=== PATIENT | female | born 1990 | race Caucasian/White ===

== ENCOUNTER 2017-10-09 13:25 | Emergency (ER) | payer SELFPAY ==
[~2017-10-09] VITALS: Ht 157.5 cm; Wt 48.0 kg
[~2017-10-09 13:25] MED LIST: CIPR500T2 PO; DARV PO; DONNTAB12 PO; OMEP20CA5 PO; PRIL20TA2 PO; PROC25R PR; PYRI200T4 PO; SUCR1TAB6 PO; SULF1TAB47 PO
[2017-10-09 13:26] VITALS: BP 107/60; PULSE 58; RESP 16; TEMP 98.1; O2SAT 99
[2017-10-09] MEDS ORDERED: ASPI81CH6 CHEW (13:44)
[2017-10-09] MEDS ORDERED: BACT800T5 PO (13:44)
--- NOTE | 2017-10-09 14:05 | PD ---
HPI Chief Complaint: Wound/Suture/Staple Re-Check Time Seen by Provider: 13:50 Travel History International Travel<30 days: No Contact w/Intl Traveler<30days: No Traveled to known affect area: No History of Present Illness HPI 27-year-old female presents to the emergency room for packing removal. Patient has IV drug user and missed her right antecubital vein. She went to a hospital in [place] where they performed an incision and drainage and packed the wound. Patient was told to have the packing removed in 2 days. States she has had significant improvement in symptoms. She had a lot of swelling and could not move her arm prior to incision and drainage and now has almost no swelling, redness, and full range of motion of her arm. She denies fever, chills, nausea , vomiting. PFSH Past Medical History Hx Anticoagulant Therapy: Yes (ASPIRIN ) Blood Disorders: No Bipolar Disorder: Yes Anxiety: Yes Cancer: No Cardiovascular Problems: No Diminished Hearing: No Endocrine: No GERD: Yes Genitourinary: No Headaches: Yes Immune Disorder: No Musculoskeletal: Yes Neurologic: Yes Reproductive: No Respiratory: No Tetanus Vaccination: < 5 Years ?: Not LMP: 10/09/17 : 1 Para: 0 Miscarriage: 0 : 1 Past Surgical History Eye Surgery: Yes ("R.EYE WHEN I WAS 4 MONTHS OLD") Other Surgery: Yes Social History Alcohol Use: Yes ( ) Tobacco Use: Yes (1/2 PACK OF CIGARETTES A DAY) Substance Use: Yes ( IV DRUG USER) Allergies-Medications (Allergen,Severity, Reaction): Coded Allergies: codeine (Unverified Adverse Reaction, Severe, "DIZZY,FAINTING,VOMITING", ) Reported Meds & Prescriptions Reported Meds & Active Scripts Active Bactrim Ds (Trimethoprim/Sulfamethoxazole) 800 Mg-160 Mg Tab 1 Tab PO BID Reported Bactrim DS (Sulfamethoxazole-Trimethoprim) 800-160 Mg Tab 1 Tab PO BID Aspirin Low Dose (Aspirin) 81 Mg Chew 81 Mg CHEW DAILY Review of Systems Except as stated in HPI: all other systems reviewed are Neg Physical Exam Narrative GENERAL: Well-nourished, well-developed female in no acute distress. Afebrile. Ambulatory. SKIN: Focused skin assessment warm/dry. There is an indurated area in the right antecubital space which measures about 3 cm in diameter. There is a 0.5 cm incision with packing in place. There is a zone of inflammation around it but no lymphangitis. HEAD: Normocephalic. EYES: No scleral icterus. No injection or drainage. NECK: Supple, trachea midline. No JVD or lymphadenopathy. CARDIOVASCULAR: Regular rate and rhythm without murmurs, gallops, or rubs. RESPIRATORY: Breath sounds equal bilaterally. No accessory muscle use. MUSCULOSKELETAL: No cyanosis, or edema. 2+ radial pulse. Full range of motion of the right upper extremity. Data Data Last Documented VS Vital Signs Date Time Temp Pulse Resp B/P (MAP) Pulse Ox O2 Delivery O2 Flow Rate FiO2 10/09/17 13:26 98.1 58 16 107/60 (76) 99 Room Air MDM Medical Decision Making Medical Screen Exam Complete: Yes Emergency Medical Condition: Yes Medical Record Reviewed: Yes Differential Diagnosis Abscess, folliculitis, failed outpatient therapy, packing removal Narrative Course 27-year-old female presents to the emergency room requesting packing removal. She had packing placed 2 days ago been wintering in hospital after incision and drainage of an antecubital abscess. Patient reports significant improvement in symptoms. She has been taking her antibiotics as prescribed. Physical exam reveals an indurated area in the right antecubital space which measures about 3 cm in diameter. There is a 0.5 cm incision with packing in place. There is a zone of inflammation around it but no lymphangitis. Packing was removed without difficulty. Patient discharged with wound care instructions and told to follow up with PCP or return for worsening symptoms. She understands and agrees to plan. Diagnosis Primary Impression: Abscess packing removal Referrals: Primary Care Physician Additional Instructions: Keep wound clean and dry. Continue antibiotics until gone. Follow up with a primary care physician. Return to emergency room for worsening symptoms, as discussed. Med/Other Pt SpecificInfo: Prescription(s) given Disposition: 01 DISCHARGE HOME Condition: Stable Shelbie Harden Oct 09, 2017 14:05
== END 2017-10-09 14:12 | disposition home or self-care (01) ==
LOC: NEPK 13:25
DX: Z48.817 Encounter for surgical aftercare following surgery on the skin and subcutaneous tissue (principal); L02.413 Cutaneous abscess of right upper limb; F17.200 Nicotine dependence, unspecified, uncomplicated; Z72.89 Other problems related to lifestyle; Z79.82 Long term (current) use of aspirin; Z86.59 Personal history of other mental and behavioral disorders; Z87.19 Personal history of other diseases of the digestive system; Z87.39 Personal history of other diseases of the musculoskeletal system and connective tissue; Z86.69 Personal history of other diseases of the nervous system and sense organs
CPT/HCPCS: 99281

== ENCOUNTER 2018-03-28 11:24 | Emergency (ER) | payer SELFPAY ==
[~2018-03-28] VITALS: Ht 160 cm; Wt 60.0 kg
[~2018-03-28 11:24] MED LIST changes: +ASPI81CH6 CHEW; +BACT800T5 PO; -CIPR500T2 PO; -DARV PO; -DONNTAB12 PO; -OMEP20CA5 PO; -PRIL20TA2 PO; -PROC25R PR; -PYRI200T4 PO; -SUCR1TAB6 PO
[2018-03-28 11:30] VITALS: BP 95/70; PULSE 120; RESP 20; TEMP 97.9; O2SAT 100
[2018-03-28] MEDS ORDERED: SODIUM CHLOR 0.9% 1000 ML INJ 1,000 ML IV ONE (11:34)
[2018-03-28 11:37] VITALS: BP 95/70; PULSE 111; RESP 20; TEMP 97.9; O2SAT 100
[2018-03-28] MEDS ORDERED: SODIUM CHLORIDE 0.9% FLUSH 10 ML FLUSH IVF PRN (11:45)
--- NOTE | 2018-03-28 11:53 | PD ---
HPI Chief Complaint: Altered Mental Status Time Seen by Provider: 11:34 Travel History International Travel<30 days: No Contact w/Intl Traveler<30days: No Traveled to known affect area: No History of Present Illness HPI The patient is a 27-year-old female who presents to the emergency department via EMS for heroin overdose. According to EMS the patient was found in a car, engine off, cyanotic, with a needle in her lap. According to EMS the patient was administered Narcan 4 mg intranasally which aroused the patient to a GCS of 13. Upon arrival the patient's eyes are open, she is verbal, but refuses to answer questions. The patient was noted to have vomiting prior to arrival and was administered Zofran 4 mg intravenously by EMS. The patient refuses to answer any questions and is a somewhat limited historian. PFSH Past Medical History Hx Anticoagulant Therapy: Yes (ASPIRIN ) Blood Disorders: No Bipolar Disorder: Yes Anxiety: Yes Cancer: No Cardiovascular Problems: No Diminished Hearing: No Endocrine: No GERD: Yes Genitourinary: No Headaches: Yes Immune Disorder: No Musculoskeletal: Yes Neurologic: Yes Reproductive: No Respiratory: No Tetanus Vaccination: Unknown Influenza Vaccination: No ?: Unknown : 1 Para: 0 Miscarriage: 0 : 1 Past Surgical History Eye Surgery: Yes ("R.EYE WHEN I WAS 4 MONTHS OLD") Other Surgery: Yes Social History Alcohol Use: Yes ( ) Tobacco Use: Yes (1/2 PACK OF CIGARETTES A DAY) Substance Use: Yes (HEROIN) Allergies-Medications (Allergen,Severity, Reaction): Coded Allergies: codeine (Unverified Adverse Reaction, Severe, "DIZZY,FAINTING,VOMITING", ) Reported Meds & Prescriptions Reported Meds & Active Scripts Active Bactrim DS (Sulfamethoxazole-Trimethoprim) 800-160 Mg Tab 1 Tab PO BID Bactrim Ds (Trimethoprim/Sulfamethoxazole) 800 Mg-160 Mg Tab 1 Tab PO BID Reported Bactrim DS (Sulfamethoxazole-Trimethoprim) 800-160 Mg Tab 1 Tab PO BID Aspirin Low Dose (Aspirin) 81 Mg Chew 81 Mg CHEW DAILY Review of Systems ROS Limitations: Clinical Condition, Intoxication, Poor Historian Except as stated in HPI: all other systems reviewed are Neg Psychiatric: Positive: Substance Abuse Physical Exam Narrative GENERAL: Eyes open, 27-year-old female who is moving all 4 extremities but refuses answer questions. SKIN: Piloerection of the skin noted. Tattoo just under the neck on the superior chest that says "eloquently wasted". HEAD: Atraumatic. Normocephalic. EYES: Pupils equal and round. 4 mm bilateral and reactive. ENT: No nasal bleeding or discharge. Mucous membranes pink and moist. NECK: Trachea midline. No JVD. CARDIOVASCULAR: Regular, tachycardic with a heart rate in the 120s. RESPIRATORY: No accessory muscle use. Clear to auscultation. Breath sounds equal bilaterally. GASTROINTESTINAL: Abdomen soft, non-tender, nondistended. No rebound tenderness. MUSCULOSKELETAL: No obvious deformities. No clubbing. No cyanosis. No edema. NEUROLOGICAL: Eyes open, is able to tell me her name but will not answer other questions. Follow simple commands. Moves all 4 extremities. PSYCHIATRIC: Appears intoxicated. Data Data Last Documented VS Vital Signs Date Time Temp Pulse Resp B/P (MAP) Pulse Ox O2 Delivery O2 Flow Rate FiO2 03/28/18 11:37 97.9 111 20 95/70 (78) 100 Room Air Orders Orders Electrocardiogram (03/28/18 11:34) Complete Blood Count With Diff (03/28/18 11:34) Comprehensive Metabolic Panel (03/28/18 11:34) Urinalysis - C+S If Indicated (03/28/18 11:34) Iv Access Insert/Monitor (03/28/18 11:34) Ecg Monitoring (03/28/18 11:34) Oximetry (03/28/18 11:34) Sodium Chloride 0.9% Flush (Ns Flush) (03/28/18 11:45) Sodium Chlor 0.9% 1000 Ml Inj (Ns 1000 M (03/28/18 11:34) Drug Screen, Random Urine (03/28/18 11:34) Alcohol (Ethanol) (03/28/18 11:34) Salicylates (Aspirin) (03/28/18 11:34) Tylenol (Acetaminophen) (03/28/18 11:34) Urine Culture (03/28/18 11:45) Ceftriaxone Inj (Rocephin Inj) (03/28/18 13:00) Lorazepam Inj (Ativan Inj) (03/28/18 13:45) Labs Laboratory Tests Test 03/28/18 11:40 03/28/18 11:45 White Blood Count 7.0 TH/MM3 Red Blood Count 4.34 MIL/MM3 Hemoglobin 13.2 GM/DL Hematocrit 38.4 % Mean Corpuscular Volume 88.5 FL Mean Corpuscular Hemoglobin 30.5 PG Mean Corpuscular Hemoglobin Concent 34.5 % Red Cell Distribution Width 13.6 % Platelet Count 468 TH/MM3 Mean Platelet Volume 7.4 FL Neutrophils (%) (Auto) 59.4 % Lymphocytes (%) (Auto) 30.9 % Monocytes (%) (Auto) 7.9 % Eosinophils (%) (Auto) 0.8 % Basophils (%) (Auto) 1.0 % Neutrophils # (Auto) 4.2 TH/MM3 Lymphocytes # (Auto) 2.2 TH/MM3 Monocytes # (Auto) 0.6 TH/MM3 Eosinophils # (Auto) 0.1 TH/MM3 Basophils # (Auto) 0.1 TH/MM3 CBC Comment DIFF FINAL Differential Comment Blood Urea Nitrogen 13 MG/DL Creatinine 1.00 MG/DL Random Glucose 142 MG/DL Total Protein 7.3 GM/DL Albumin 3.5 GM/DL Calcium Level 8.9 MG/DL Alkaline Phosphatase 108 U/L Aspartate Amino Transf (AST/SGOT) 364 U/L Alanine Aminotransferase (ALT/SGPT) 695 U/L Total Bilirubin 0.8 MG/DL Sodium Level 141 MEQ/L Potassium Level 3.5 MEQ/L Chloride Level 105 MEQ/L Carbon Dioxide Level 20.7 MEQ/L Anion Gap 15 MEQ/L Estimat Glomerular Filtration Rate 66 ML/MIN Salicylates Level LESS THAN 1.7 MG/DL Acetaminophen Level LESS THAN 2.0 MCG/ML Ethyl Alcohol Level LESS THAN 3 MG/DL Urine Color YELLOW Urine Turbidity HAZY Urine pH 8.0 Urine Specific [place] 1.020 Urine Protein 30 mg/dL Urine Glucose (UA) NEG mg/dL Urine Ketones 10 mg/dL Urine Occult Blood NEG Urine Nitrite NEG Urine Bilirubin NEG Urine Urobilinogen 4.0 MG/DL Urine Leukocyte Esterase MOD Urine RBC 2 /hpf Urine WBC 14 /hpf Urine Squamous Epithelial Cells 1 /hpf Urine Transitional Epithelial Cells <1 /hpf Urine Amorphous Sediment RARE Urine Granular Casts 5 /lpf Urine Mucus FEW /lpf Microscopic Urinalysis Comment CATH-CULTURE IND Urine Opiates Screen POS Urine Barbiturates Screen NEG Urine Amphetamines Screen POS Urine Benzodiazepines Screen NEG Urine Cocaine Screen NEG Urine Cannabinoids Screen POS MDM Medical Decision Making Medical Screen Exam Complete: Yes Emergency Medical Condition: Yes Medical Record Reviewed: Yes Interpretation(s) EKG reveals sinus tachycardia with a heart rate of 122. Laboratory Tests Test 03/28/18 11:40 03/28/18 11:45 White Blood Count 7.0 TH/MM3 Red Blood Count 4.34 MIL/MM3 Hemoglobin 13.2 GM/DL Hematocrit 38.4 % Mean Corpuscular Volume 88.5 FL Mean Corpuscular Hemoglobin 30.5 PG Mean Corpuscular Hemoglobin Concent 34.5 % Red Cell Distribution Width 13.6 % Platelet Count 468 TH/MM3 Mean Platelet Volume 7.4 FL Neutrophils (%) (Auto) 59.4 % Lymphocytes (%) (Auto) 30.9 % Monocytes (%) (Auto) 7.9 % Eosinophils (%) (Auto) 0.8 % Basophils (%) (Auto) 1.0 % Neutrophils # (Auto) 4.2 TH/MM3 Lymphocytes # (Auto) 2.2 TH/MM3 Monocytes # (Auto) 0.6 TH/MM3 Eosinophils # (Auto) 0.1 TH/MM3 Basophils # (Auto) 0.1 TH/MM3 CBC Comment DIFF FINAL Differential Comment Blood Urea Nitrogen 13 MG/DL Creatinine 1.00 MG/DL Random Glucose 142 MG/DL Total Protein 7.3 GM/DL Albumin 3.5 GM/DL Calcium Level 8.9 MG/DL Alkaline Phosphatase 108 U/L Aspartate Amino Transf (AST/SGOT) 364 U/L Alanine Aminotransferase (ALT/SGPT) 695 U/L Total Bilirubin 0.8 MG/DL Sodium Level 141 MEQ/L Potassium Level 3.5 MEQ/L Chloride Level 105 MEQ/L Carbon Dioxide Level 20.7 MEQ/L Anion Gap 15 MEQ/L Estimat Glomerular Filtration Rate 66 ML/MIN Salicylates Level LESS THAN 1.7 MG/DL Acetaminophen Level LESS THAN 2.0 MCG/ML Ethyl Alcohol Level LESS THAN 3 MG/DL Urine Color YELLOW Urine Turbidity HAZY Urine pH 8.0 Urine Specific [place] 1.020 Urine Protein 30 mg/dL Urine Glucose (UA) NEG mg/dL Urine Ketones 10 mg/dL Urine Occult Blood NEG Urine Nitrite NEG Urine Bilirubin NEG Urine Urobilinogen 4.0 MG/DL Urine Leukocyte Esterase MOD Urine RBC 2 /hpf Urine WBC 14 /hpf Urine Squamous Epithelial Cells 1 /hpf Urine Transitional Epithelial Cells <1 /hpf Urine Amorphous Sediment RARE Urine Granular Casts 5 /lpf Urine Mucus FEW /lpf Microscopic Urinalysis Comment CATH-CULTURE IND Urine Opiates Screen POS Urine Barbiturates Screen NEG Urine Amphetamines Screen POS Urine Benzodiazepines Screen NEG Urine Cocaine Screen NEG Urine Cannabinoids Screen POS Differential Diagnosis Differential diagnosis includes heroin overdose, polysubstance abuse, alcohol intoxication, methamphetamine use, cocaine use, opiate withdrawal. Narrative Course IV was established, labs are drawn and sent, and the patient was placed on cardiac telemetry monitoring and continuous pulse oximetry monitoring. EKG was ordered and interpreted. The patient was administered 1 L of IV fluids and monitored on pulse oximetry and cardiac telemetry monitoring. The patient's LFTs are elevated, consistent with hepatitis, may be hepatitis C versus hepatic injury from polysubstance abuse. The patient's tox screen is positive for opiates, methamphetamines, and cannabinoids. The patient was monitored in the emergency department. UA was positive for UTI, therefore, was administered Rocephin 1 g intravenously. The patient pulled her IV out, therefore, the Rocephin was administered IM. The patient was also administered Ativan 2 mg IM agitated from methamphetamine use. Diagnosis Primary Impression: Heroin overdose Qualified Codes: T40.1X4A - Poisoning by heroin, undetermined, initial encounter Additional Impressions: Polysubstance abuse Hepatitis UTI (urinary tract infection) Qualified Codes: N30.00 - Acute cystitis without hematuria Patient Instructions: General Instructions Additional Instructions: Stop using drugs. Bactrim as directed. Follow-up with your primary physician. Follow-up with [facility] for hepatitis testing. Med/Other Pt SpecificInfo: Prescription(s) given Scripts Sulfamethoxazole-Trimethoprim (Bactrim DS) 800-160 Mg Tab 1 TAB PO BID for Infection, #14 TAB 0 Refills Prov: Darwin Fuller MD 03/28/18 Disposition: 01 DISCHARGE HOME Condition: Stable Darwin Fuller MD March 28, 2018 11:53
[2018-03-28 12:05] LABS: AUTOMATED NEUTROPHIL # 4.2 TH/MM3 (1.8-7.7); BASOPHIL # 0.1 TH/MM3 (0-0.2); EOSINOPHIL # 0.1 TH/MM3 (0-0.4); EOSINOPHIL % 0.8 % (0.0-4.0); HEMATOCRIT 38.4 % (35.0-46.0); HEMOGLOBIN 13.2 GM/DL (11.6-15.3); LYMPH % 30.9 % (9.0-44.0); LYMPHOCYTE # 2.2 TH/MM3 (1.0-4.8); MEAN CELL VOLUME 88.5 FL (80.0-100.0); MEAN CORPUSCULAR HEMOGLOBIN 30.5 PG (27.0-34.0); MEAN CORPUSCULAR HGB CONC 34.5 % (32.0-36.0); MEAN PLATELET VOLUME 7.4 FL (7.0-11.0); MONO % 7.9 % (0.0-8.0); MONOCYTE # 0.6 TH/MM3 (0-0.9); NEUT % 59.4 % (16.0-70.0); PLATELET COUNT 468 TH/MM3 (150-450); RED BLOOD COUNT 4.34 MIL/MM3 (4.00-5.30); RED CELL DISTRIBUTION WIDTH 13.6 % (11.6-17.2)
[2018-03-28 12:30] LABS: ALBUMIN 3.5 GM/DL (3.4-5.0); ALKALINE PHOSPHATASE 108 U/L (45-117); ALT (GPT) 695 U/L (10-53); AST (GOT) 364 U/L (15-37); BICARBONATE 20.7 MEQ/L (21.0-32.0); BLOOD UREA NITROGEN 13 MG/DL (7-18); CALCIUM 8.9 MG/DL (8.5-10.1); CHLORIDE 105 MEQ/L (98-107); GLOMERULAR FILTRATION RATE 66 ML/MIN (>89); GLUCOSE,RANDOM 142 MG/DL (74-106); SODIUM (NA) 141 MEQ/L (136-145); TOTAL BILIRUBIN ADULT 0.8 MG/DL (0.2-1.0); TOTAL PROTEIN 7.3 GM/DL (6.4-8.2)
[2018-03-28 12:31] LABS: ACETAMINOPHEN LESS THAN 2.0 MCG/ML (10.0-30.0)
[2018-03-28 12:35] LABS: AMORPHOUS SEDIMENT, URINE RARE; BILIRUBIN, URINE NEG (NEG); BLOOD, URINE NEG (NEG); GLUCOSE,URINE NEG (NEG); KETONE, URINE 10 mg/dL (NEG); MUCUS URINE FEW /lpf (OCC); NITRITE,URINE NEG (NEG); SQUAMOUS EPITHELIAL CELL URINE 1 /hpf (0-5); TRANSITIONAL EPI CELLS, URINE <1 /hpf; URINE COLOR YELLOW (YELLW/STRAW); URINE LEUKOCYTE ESTERASE MOD (NEG)
[2018-03-28] MEDS ORDERED: BACT800T5 PO (12:58)
[2018-03-28] MEDS ORDERED: cefTRIAXone INJ 1,000 MG in SODIUM CHLORIDE 0.9% INJ 100 ML IV ONE (13:00)
[2018-03-28] MEDS ORDERED: LORazepam 2 MG/ML VIAL IM ONE (13:45)
[2018-03-28 17:00] VITALS: BP 114/76; PULSE 84; RESP 20; O2SAT 97
[2018-03-28 20:00] VITALS: BP 110/70; PULSE 80; RESP 20; O2SAT 97
[2018-03-29 03:30] VITALS: BP 99/55; PULSE 88; RESP 20; O2SAT 97
[2018-03-29 07:57] VITALS: BP 102/75; PULSE 89; RESP 18; O2SAT 98
--- NOTE | 2018-03-29 13:24 | EKG ---
Date Performed: 03/28/2018 Time Performed: 11:36:59 PTAGE: 27 years EKG: SINUS TACHYCARDIA ABNORMAL RHYTHM ECG Since PREVIOUS TRACING , no significant change noted PREVIOUS TRACIN05/24/2007 01.06 DOCTOR: Otto Musa Interpretating Date/Time 03/29/2018 13:22:37
== END 2018-03-29 08:18 | disposition home or self-care (01) ==
LOC: NEPE 11:24
DX: T40.1X4A Poisoning by heroin, undetermined, initial encounter (principal); N30.00 Acute cystitis without hematuria; K75.9 Inflammatory liver disease, unspecified; F17.210 Nicotine dependence, cigarettes, uncomplicated; R00.0 Tachycardia, unspecified
CPT/HCPCS: 80053; 80307; 81001; 85025; 86403; 87086; 87186; 93005; 96361; 96365; 96372; 99284; J0696; J2060; J7030